=== PATIENT | male | born 1960 | race Caucasian/White ===

== ENCOUNTER 2016-07-24 15:40 | Emergency (ER) | payer OTHER, MEDICAID ==
[2016-07-24 15:47] VITALS: BP 122/69; PULSE 116; RESP 16; TEMP 97.9; O2SAT 96
[2016-07-24] MEDS ORDERED: NS 1,000 ML IV ONE (16:24)
--- NOTE | 2016-07-24 16:25 | UCPHY ---
H & P Patient Type: Established Chief Complaint Nursing Narrative: c/o generalized abd pain, n/v since 1am today Time Seen by Provider: 07/24/16 16:14 HPI/ROS: Chief Complaint: Back pain, abdominal pain HPI: 56-year-old developmentally delayed male type 2 diabetes presenting with mid back pain and right-sided abdominal pain which started about 3 o'clock this morning. Patient woke up with lower back pain. He has had several episodes of vomiting. He has been constipated had a bowel movement for about 3 days. No fevers or chills. He was seen by his physician who noted that he had 2+ blood in his urine, otherwise was negative. He was sent here for further evaluation. ROS: 10 point Review of Systems is negative except as noted in the HPI. PMH: Developmental delay, appendectomy, type 2 diabetes Social History: No smoking, no alcohol, no recreational drug use Family History: non-contributory Physical Exam: Gen: Awake, Alert, No Distress HEENT: Nose: no rhinorrhea Eyes: PERRLA, EOMI Mouth: Moist mucosa Neck: Supple, no JVD Chest: nontender, lungs clear to auscultation Heart: S1, S2 normal, no murmur Abd: Soft, mild tenderness no right lower quadrant, no guarding Back: no CVA tenderness, no midline tenderness Ext: no edema, non-tender Skin: no rash Neuro: CN II-XII intact, Sensation grossly intact, Strength 5/5 in bilateral upper and lower extremities - Medical/Surgical History Hx Asthma: No Hx Chronic Respiratory Disease: No Hx Diabetes: Yes Hx Cardiac Disease: No Hx Renal Disease: No Hx Cirrhosis: No Hx HIV/AIDS: No Hx Splenectomy or Spleen Trauma: No Other PMH: diabetes, htn - Family History Significant Family History: No pertinent family hx - Social History Smoking Status: Never smoked Constitutional: Initial Vital Signs Temperature (C) 36.6 C 07/24/16 15:44 Heart Rate 116 H 07/24/16 15:44 Respiratory Rate 16 07/24/16 15:44 Blood Pressure 122/69 H 07/24/16 15:44 O2 Sat (%) 96 07/24/16 15:44 O2 Delivery Mode Room Air Allergies/Adverse Reactions: No Known Allergies Allergy (Verified 07/26/13 14:50) Home Medications: Medication Instructions Recorded LISINOPRIL 40 mg 05/01/10 METFORMIN HCL 1,000 mg 05/01/10 Insulin NPH Human [humULIN N 100 26 units 07/26/13 UNITS/ML (*)] Medical Decision Making - Diagnostics Imaging Results: Imaging Impressions Abdomen/Pelvis CT 07/24/16 16:25 Impression: 1. Moderate right hydronephrosis and hydroureter with associated stranding. Differential diagnosis includes recently passed ureteral calculus versus pyelonephritis. 2. Bilateral nephrolithiasis. 3. Constipation. Otherwise, normal bowel pattern. Findings discussed with Emergency Department physician, Vlad Parker MD, on 07/24/2016 at 1718 hours. Attention: This CT examination is specifically designed to evaluate patients who are clinically suspected of having acute obstructive uropathy. This examination does not use radiographic contrast, and as such, provides only a limited evaluation of the abdomen, pelvis and retroperitoneum. If there is further clinical suspicion for pathological conditions other than obstructive uropathy, a complete CT evaluation of the abdomen and pelvis utilizing intravenous, oral, and rectal contrast should be considered. Imaging: Discussed imaging studies w/ scallop dredger Radiologist ED Course/Re-evaluation: CT scan consistent with a passed kidney stone. Urinalysis shows blood but there is no leuk esterase or nitrate to suggest infection. Patient has not had any pain here has not required any analgesia. Will discharge with follow up with primary care physician as needed, return for worsening. - Data Points Laboratory Results: Laboratory Results 07/24/16 16:18 07/24/16 16:18 07/24/16 07/24/16 07/24/16 18:00 16:18 16:18 WBC 13.31 10^3/uL H 10^3/uL (3.80-9.50) RBC 4.89 10^6/uL 10^6/uL (4.40-6.38) Hgb 14.8 g/dL g/dL (13.7-17.5) POC Hgb Hct 43.0 % % (40.0-51.0) POC Hct MCV 87.9 fL fL (81.5-99.8) MCH 30.3 pg pg (27.9-34.1) MCHC 34.4 g/dL g/dL (32.4-36.7) RDW 13.3 % % (11.5-15.2) Plt Count 328 10^3/uL 10^3/uL (150-400) MPV 10.0 fL fL (8.7-11.7) Neut % (Auto) 85.9 % H % (39.3-74.2) Lymph % (Auto) 7.0 % L % (15.0-45.0) Dillon % (Auto) 6.5 % % (4.5-13.0) Eos % (Auto) 0.0 % L % (0.6-7.6) Baso % (Auto) 0.1 % L % (0.3-1.7) Nucleat RBC Rel Count 0.0 % % (0.0-0.2) Absolute Neuts (auto) 11.44 10^3/uL H 10^3/uL (1.70-6.50) Absolute Lymphs (auto) 0.93 10^3/uL L 10^3/uL (1.00-3.00) Absolute Monos (auto) 0.87 10^3/uL H 10^3/uL (0.30-0.80) Absolute Eos (auto) 0.00 10^3/uL L 10^3/uL (0.03-0.40) Absolute Basos (auto) 0.01 10^3/uL L 10^3/uL (0.02-0.10) Absolute Nucleated RBC 0.00 10^3/uL 10^3/uL (0-0.01) Immature Gran % 0.5 % % (0.0-1.1) Immature Gran # 0.06 10^3/uL 10^3/uL (0.00-0.10) POC Sodium Sodium 140 mEq/L mEq/L (134-144) POC Potassium Potassium 4.8 mEq/L mEq/L (3.5-5.2) POC Chloride Chloride 102 mEq/L mEq/L (97-110) Carbon Dioxide 17 mEq/l L mEq/l (22-31) Anion Gap 21 mEq/L H mEq/L (8-16) POC BUN BUN 32 mg/dL H mg/dL (7-23) Creatinine 1.2 mg/dL mg/dL (0.7-1.3) POC Creatinine Estimated GFR > 60 Glucose 247 mg/dL H mg/dL (70-100) POC Glucose Calcium 9.7 mg/dL mg/dL (8.5-10.4) Total Bilirubin 0.6 mg/dL mg/dL (0.1-1.4) Conjugated Bilirubin 0.3 mg/dL mg/dL (0.0-0.5) Unconjugated Bilirubin 0.3 mg/dL mg/dL (0.0-1.1) AST 20 IU/L IU/L (17-59) ALT 24 IU/L IU/L (21-72) Alkaline Phosphatase 122 IU/L IU/L (38-126) Total Protein 7.5 g/dL g/dL (6.3-8.2) Albumin 4.2 g/dL g/dL (3.5-5.0) Lipase 209.0 IU/L IU/L (23-300) Urine Color YELLOW Urine Appearance CLEAR Urine pH 5.5 (5.0-7.5) Ur Specific [place] 1.020 (1.002-1.030) Urine Protein 1+ H (NEGATIVE) Urine Ketones 1+ H (NEGATIVE) Urine Blood 3+ H (NEGATIVE) Urine Nitrate NEGATIVE (NEGATIVE) Urine Bilirubin NEGATIVE (NEGATIVE) Urine Urobilinogen 0.2 EU EU (0.2-1.0) Ur Leukocyte Esterase NEGATIVE (NEGATIVE) Urine RBC Pending Urine WBC Pending Ur Epithelial Cells Pending Urine Glucose 2+ H (NEGATIVE) 07/24/16 16:11 WBC RBC Hgb POC Hgb 15.6 gm/dL gm/dL (14.5-17.3) Hct POC Hct 46 % % (42.8-50.6) MCV MCH MCHC RDW Plt Count MPV Neut % (Auto) Lymph % (Auto) Dillon % (Auto) Eos % (Auto) Baso % (Auto) Nucleat RBC Rel Count Absolute Neuts (auto) Absolute Lymphs (auto) Absolute Monos (auto) Absolute Eos (auto) Absolute Basos (auto) Absolute Nucleated RBC Immature Gran % Immature Gran # POC Sodium 141 mEq/L mEq/L (134-144) Sodium POC Potassium 4.6 mEq/L mEq/L (3.3-5.0) Potassium POC Chloride 106 mEq/L mEq/L (96-108) Chloride Carbon Dioxide Anion Gap POC BUN 34 mg/dL H mg/dL (7-23) BUN Creatinine POC Creatinine 1.3 mg/dL mg/dL (0.8-1.5) Estimated GFR Glucose POC Glucose 257 mg/dL H mg/dL (70-100) Calcium Total Bilirubin Conjugated Bilirubin Unconjugated Bilirubin AST ALT Alkaline Phosphatase Total Protein Albumin Lipase Urine Color Urine Appearance Urine pH Ur Specific [place] Urine Protein Urine Ketones Urine Blood Urine Nitrate Urine Bilirubin Urine Urobilinogen Ur Leukocyte Esterase Urine RBC Urine WBC Ur Epithelial Cells Urine Glucose Medications Given: Discontinued Medications Sodium Chloride (Ns) 1,000 mls @ 0 mls/hr IV ONCE ONE PRN Reason: Wide Open Stop: 07/24/16 16:25 Last Admin: 07/24/16 16:40 Dose: 1,000 mls Point of Care Test Results: 07/24/16 16:11 POC Sodium 141 POC Potassium 4.6 POC Chloride 106 POC BUN 34 H POC Creatinine 1.3 POC Glucose 257 H Departure - Departure Disposition: Home, Routine, Self-Care Clinical Impression: Kidney stone Condition: Good Instructions: Kidney Stones (ED) Additional Instructions: Follow up with primary care physician in 3-4 days if you're still having pain. Return Urgent Care emergency department for fevers, chills, uncontrolled pain, nausea, vomiting, or any other concerns. Referrals: Karin Shepard MD [Primary Care Provider] - As per Instructions - PQRS PQRS Measurement: NA
[2016-07-24 16:33] LABS: % IMMATURE GRANULYOCYTES 0.5 % (0.0-1.1); ABSOLUTE IMMATURE GRANULOCYTES 0.06 10^3/uL (0.00-0.10); ADD DIFF? NO; ADD MORPH? NO; ADD SCAN? NO; ATYPICAL LYMPHOCYTE FLAG 0 (0-99); FRAGMENT RBC FLAG 0 (0-99); HEMOGLOBIN 14.8 g/dL (13.7-17.5); LEFT SHIFT FLG 0 (0-99); LIPEMIA HEMOLYSIS FLAG 90 (0-99); MEAN CELL HEMOGLOBIN 30.3 pg (27.9-34.1); MEAN CELL HEMOGLOBIN CONCENTR. 34.4 g/dL (32.4-36.7); MEAN CELL VOLUME 87.9 fL (81.5-99.8); PLATELET CLUMPS FLAG 10 (0-99); PLATELET COUNT 328 10^3/uL (150-400); RED BLOOD CELL COUNT 4.89 10^6/uL (4.40-6.38); RED CELL DISTRIBUTION WIDTH 13.3 % (11.5-15.2)
[2016-07-24 16:48] LABS: ALANINE AMINOTRANSFERASE 24 IU/L (21-72); ALBUMIN 4.2 g/dL (3.5-5.0); ALKALINE PHOSPHATASE 122 IU/L (38-126); ANION GAP 21 mEq/L (8-16); ASPARTATE AMINOTRANSFERASE 20 IU/L (17-59); BILIRUBIN,TOTAL 0.6 mg/dL (0.1-1.4); BILIRUBIN-CONJUGATED 0.3 mg/dL (0.0-0.5); BILIRUBIN-UNCONJUGATED 0.3 mg/dL (0.0-1.1); CALCIUM 9.7 mg/dL (8.5-10.4); CARBON DIOXIDE 17 mEq/l (22-31); CHLORIDE 102 mEq/L (97-110); CREATININE 1.2 mg/dL (0.7-1.3); GLOMERULAR FILTRATION RATE > 60; GLUCOSE 247 mg/dL (70-100); POTASSIUM 4.8 mEq/L (3.5-5.2); SODIUM 140 mEq/L (134-144); TOTAL PROTEIN 7.5 g/dL (6.3-8.2)
[2016-07-24 18:08] LABS: COLOR YELLOW; LEUKOCYTE ESTERASE,URINE NEGATIVE (NEGATIVE); NITRITE,URINE NEGATIVE (NEGATIVE); PH,URINE 5.5 (5.0-7.5)
[2016-07-24 18:24] LABS: BACTERIA 1+ /hpf (NONE SEEN); MUCUS 2+ /lpf (NONE-1+)
== END 2016-07-24 18:40 | disposition home or self-care (01) ==
LOC: CED 15:40
DX: N20.0 Calculus of kidney (principal); K59.00 Constipation, unspecified; E11.9 Type 2 diabetes mellitus without complications; I10 Essential (primary) hypertension
CPT/HCPCS: 74176-PO; 80048-PO; 80076-PO; 81003-PO; 81015-PO; 82947-QW; 83690-PO; 85025-PO; 96360-PO; 99215-PO; G0463-PO

== ENCOUNTER 2017-05-16 10:30 | Emergency (ER) | payer OTHER, MEDICAID ==
--- NOTE | 2017-05-16 11:01 | EDPHY ---
H & P Stated Complaint: R hip pain after fall from van this am Time Seen by Provider: 05/16/17 10:43 HPI/ROS: CHIEF COMPLAINT: Right hip pain History by patient HISTORY OF PRESENT ILLNESS: 57-year-old man with history of prior stroke presents complaining of right hip pain after falling out of the van on his way to his day program approximately 90 min ago. Patient states that he landed on his right side. He did not hit his head. He was able to get up on his own. He has pain when he walks however. He also complains of pain in the middle and lower part of his back. He denies any neck pain. He denies any chest pain but complains of pain in his back when he takes a deep breath. He denies any focal numbness or weakness. He also complains of some left leg pain right after the fall but states this has resolved currently. He has not taken anything for pain and declines anything for pain currently. REVIEW OF SYSTEMS: As in HPI, and all other systems reviewed and are negative Source: Patient, Family - Personal History Current Tetanus/Diphtheria Vaccine: Yes - Medical/Surgical History Hx Asthma: No Hx Chronic Respiratory Disease: No Hx Diabetes: Yes Hx Cardiac Disease: No Hx Renal Disease: No Hx Cirrhosis: No Hx Alcoholism: No Hx HIV/AIDS: No Hx Splenectomy or Spleen Trauma: No Other PMH: appy, eye, diabetes, htn - Social History Smoking Status: Never smoked - Physical Exam Exam: General Appearance: Alert and no distress. Older appearing than stated age Eyes: Pupils equal and round no injection. Extraocular movements intact Head: Normocephalic atraumatic Musculoskeletal: Neck is supple and nontender. Full range of motion Chest: No clavicular chest wall tenderness Extremities: Pelvis is stable nontender, full range of motion of right hip, positive tenderness over right inferior trochanter, no skin lesions, full range of motion of right knee, positive pain with AB duction inflection a hip, DP pulses 2+ equal bilaterally, left leg with node tenderness or deformity and full range of motion Back: Positive tenderness mid T-spine and upper L-spine, and step-off or crepitus. Skin: No rashes or lesions except as described above. Neurologic: Awake alert oriented x3, old facial droop, motor is 5/5 equal bilaterally, sensation intact throughout Constitutional: Initial Vital Signs Heart Rate 98 05/16/17 10:37 Respiratory Rate 20 05/16/17 10:37 Blood Pressure 145/84 H 05/16/17 10:37 O2 Sat (%) 94 05/16/17 10:37 O2 Delivery Mode Room Air Allergies/Adverse Reactions: No Known Allergies Allergy (Verified 05/16/17 10:40) Home Medications: Medication Instructions Recorded Amlodipine Besylate 05/16/17 Lantus Solostar 05/16/17 Lisinopril 05/16/17 Simvastatin 05/16/17 metFORMIN HCL 05/16/17 Medical Decision Making - Diagnostics Imaging Results: Imaging Impressions Hip X-Ray 05/16/17 10:45 Impression: 1. Minimal L2 and L3 compressions of unknown age. Correlation with the site of symptoms is recommended. 2. Scoliosis. Query muscle spasm. 3. Severe constipation. 2. Thoracic Spine, 4 views History: Pain, fall out of vehicle Findings: There is a mild thoracic dextroscoliosis. Alignment on the lateral view is anatomic. There is no paraspinal stripe widening. Thoracic disk spaces maintain normal height. No fracture is identified. There is atherosclerotic calcification of the aortic arch and both carotid bifurcations. Impression: No fracture identified. 3. Right Hip, 2 views History: Pain, fall from vehicle Findings: No hip fracture or dislocation is identified. The pelvic ring appears intact. The SI joints and pubic symphysis appear normally aligned. There is scattered atherosclerotic vascular calcification. Impression: Nothing acute identified. Lumbar Spine X-Ray 05/16/17 10:45 Impression: 1. Minimal L2 and L3 compressions of unknown age. Correlation with the site of symptoms is recommended. 2. Scoliosis. Query muscle spasm. 3. Severe constipation. 2. Thoracic Spine, 4 views History: Pain, fall out of vehicle Findings: There is a mild thoracic dextroscoliosis. Alignment on the lateral view is anatomic. There is no paraspinal stripe widening. Thoracic disk spaces maintain normal height. No fracture is identified. There is atherosclerotic calcification of the aortic arch and both carotid bifurcations. Impression: No fracture identified. 3. Right Hip, 2 views History: Pain, fall from vehicle Findings: No hip fracture or dislocation is identified. The pelvic ring appears intact. The SI joints and pubic symphysis appear normally aligned. There is scattered atherosclerotic vascular calcification. Impression: Nothing acute identified. Thoracic Spine X-Ray 05/16/17 10:54 Impression: 1. Minimal L2 and L3 compressions of unknown age. Correlation with the site of symptoms is recommended. 2. Scoliosis. Query muscle spasm. 3. Severe constipation. 2. Thoracic Spine, 4 views History: Pain, fall out of vehicle Findings: There is a mild thoracic dextroscoliosis. Alignment on the lateral view is anatomic. There is no paraspinal stripe widening. Thoracic disk spaces maintain normal height. No fracture is identified. There is atherosclerotic calcification of the aortic arch and both carotid bifurcations. Impression: No fracture identified. 3. Right Hip, 2 views History: Pain, fall from vehicle Findings: No hip fracture or dislocation is identified. The pelvic ring appears intact. The SI joints and pubic symphysis appear normally aligned. There is scattered atherosclerotic vascular calcification. Impression: Nothing acute identified. Pelvis X-Ray 05/16/17 11:31 Impression: Nothing acute identified. ED Course/Re-evaluation: 57-year-old man presents with right hip pain and low back pain after fall out of a parked vehicle. Patient is currently ambulatory. X-rays showed no evidence of acute fracture per the radiologist. There was lumbar compression of indeterminate age on the x-ray, however given the mild nature of the patient' s pain and tenderness these are unlikely to represent acute fracture. I am recommending symptomatic treatment with ice, acetaminophen or Tylenol as needed and follow up with primary care physician. I discussed this with the patient and his sister. Departure - Departure Disposition: Home, Routine, Self-Care Clinical Impression: Contusion of hip, right Qualifiers: Encounter type: initial encounter Qualified Code(s): S70.01XA - Contusion of right hip, initial encounter Condition: Fair Instructions: Hip Contusion (ED) Additional Instructions: You were seen by Dr. Sonam Chowdhury today. Your x-ray showed no evidence of acute fracture. He may take Tylenol and/or ibuprofen as needed for pain. Try also icing the sore areas. Return for any worsening or new concerns. Follow up with the primary care physician as needed. Referrals: Karin Shepard MD [Primary Care Provider] - As per Instructions
[2017-05-16 11:49] VITALS: BP 144/90; PULSE 94; RESP 18; TEMP 97.9; O2SAT 91
== END 2017-05-16 12:05 | disposition home or self-care (01) ==
LOC: CED 10:30
DX: S70.01XA Contusion of right hip, initial encounter (principal); E11.9 Type 2 diabetes mellitus without complications; I10 Essential (primary) hypertension; Z79.4 Long term (current) use of insulin; V58.3XXA Unspecified occupant of pick-up truck or van injured in noncollision transport accident in nontraffic accident, initial encounter
CPT/HCPCS: 72072-PO; 72100-PO; 72190-PO; 73502-PO

== ENCOUNTER 2017-05-27 12:33 | Emergency (ER) | payer OTHER, MEDICAID ==
[2017-05-27 12:44] VITALS: TEMP 98
[2017-05-27] MEDS ORDERED: ONDANSETRON 4 MG/2 ML VIAL IVP ONE (13:00)
--- NOTE | 2017-05-27 13:02 | EDPHY ---
H & P Stated Complaint: c/o being sick since last week Time Seen by Provider: 05/27/17 12:36 HPI/ROS: 57-year-old male presents complaining of nausea and dry heaves that began yesterday although he states he had a similar episode about a week ago lasting several days. He denies diarrhea he denies constipation. He complains of crampy abdominal pain as well. Review of systems General no fever no chills no weakness HEENT no eye pain no eye discharge. No eye redness, no sore throat Respiratory no cough, no shortness of breath Cardiac no chest pain, no peripheral edema GI no abdominal pain, no diarrhea, no constipation, positive dry heaves, nausea , vomiting no flank pain, no hematuria, no dysuria Musculoskeletal no myalgias, no joint pain Heme no easy bruising, no easy bleeding Endo no polyuria, no polydipsia Skin no rashes, no pruritus Neuro no syncope, no dizziness, no headaches Psych is no suicidal ideation, no homicidal ideation Source: Patient Exam Limitations: No limitations - Personal History Current Tetanus Diphtheria and Acellular Pertussis (TDAP): Unsure - Medical/Surgical History Hx Asthma: No Hx Chronic Respiratory Disease: No Hx Diabetes: Yes Hx Cardiac Disease: No Hx Renal Disease: No Hx Cirrhosis: No Hx Alcoholism: No Hx HIV/AIDS: No Hx Splenectomy or Spleen Trauma: No Other PMH: appy, eye, diabetes, htn - Family History Significant Family History: No pertinent family hx - Social History Smoking Status: Never smoked Alcohol Use: None Drug Use: None - Physical Exam Exam: 57-year-old male awake alert in moderate distress secondary to dry heaves, nontoxic in appearance, afebrile HEENT atraumatic normocephalic, extraocular muscles intact, anicteric Oropharynx mucosa dry Neck supple no meningismus Lungs clear to auscultation bilaterally Heart regular rate and rhythm without murmur rub or gallop Abdomen nondistended bowel sounds present, mild diffuse tenderness, no guarding no rebound no pulsatile mass Will healed scar in right lower quadrant Back no CVA tenderness, no step-offs, no spinal tenderness Extremities no cyanosis clubbing or edema Neuro alert and oriented, no focal deficits Constitutional: Initial Vital Signs Temperature (C) 36.6 C 05/27/17 12:41 Heart Rate 92 02/20/18 12:41 Respiratory Rate 18 05/27/17 12:41 Blood Pressure 127/73 H 05/27/17 12:41 O2 Sat (%) 93 05/27/17 12:41 O2 Delivery Mode Room Air O2 (L/minute) 2 Allergies/Adverse Reactions: No Known Allergies Allergy (Verified 05/16/17 10:40) Home Medications: Medication Instructions Recorded Amlodipine Besylate 05/16/17 Lantus Solostar 05/16/17 Lisinopril 05/16/17 Simvastatin 05/16/17 metFORMIN HCL 05/16/17 Medical Decision Making - Diagnostics Imaging Results: Imaging Impressions Abdomen X-Ray 05/27/17 14:01 Impression: 1. Constipation. 2. No acute findings. ED Course/Re-evaluation: Patient seen and evaluated for nausea vomiting dry heaves, crampy abdominal pain. CBC within normal limits Lipase normal Lactate normal Glucose mildly elevated at 1:50 a.m. Bicarb 18, anion gap 22 EKG normal sinus rhythm Troponin normal Abdominal series No dilated bowel no air-fluid levels, large amount of stool burden Patient given 2 L normal saline Zofran 4 mg IV push Feeling markedly improved Impression Constipation With nausea No evidence of small-bowel obstruction Plan Home Stool softener, ondansetron, Mag citrate as needed Follow-up PCP Differential Diagnosis: Differential diagnosis considered but not limited to Small bowel obstruction, pancreatitis, cholecystitis, gastroenteritis, enteritis , constipation - Data Points Laboratory Results: Laboratory Results 05/27/17 13:25 05/27/17 13:25 05/27/17 05/27/17 05/27/17 13:25 13:25 13:25 WBC 9.49 10^3/uL 10^3/uL (3.80-9.50) RBC 5.28 10^6/uL 10^6/uL (4.40-6.38) Hgb 15.4 g/dL g/dL (13.7-17.5) Hct 44.7 % % (40.0-51.0) MCV 84.7 fL fL (81.5-99.8) MCH 29.2 pg pg (27.9-34.1) MCHC 34.5 g/dL g/dL (32.4-36.7) RDW 14.3 % % (11.5-15.2) Plt Count 357 10^3/uL 10^3/uL (150-400) MPV 9.3 fL fL (8.7-11.7) Neut % (Auto) 79.5 % H % (39.3-74.2) Lymph % (Auto) 9.7 % L % (15.0-45.0) [place] % (Auto) 10.1 % % (4.5-13.0) Eos % (Auto) 0.2 % L % (0.6-7.6) Baso % (Auto) 0.2 % L % (0.3-1.7) Nucleat RBC Rel Count 0.0 % % (0.0-0.2) Absolute Neuts (auto) 7.54 10^3/uL H 10^3/uL (1.70-6.50) Absolute Lymphs (auto) 0.92 10^3/uL L 10^3/uL (1.00-3.00) Absolute Monos (auto) 0.96 10^3/uL H 10^3/uL (0.30-0.80) Absolute Eos (auto) 0.02 10^3/uL L 10^3/uL (0.03-0.40) Absolute Basos (auto) 0.02 10^3/uL 10^3/uL (0.02-0.10) Absolute Nucleated RBC 0.00 10^3/uL 10^3/uL (0-0.01) Immature Gran % 0.3 % % (0.0-1.1) Immature Gran # 0.03 10^3/uL 10^3/uL (0.00-0.10) VBG Lactic Acid 2.0 mmol/L mmol/L (0.7-2.1) Sodium 139 mEq/L mEq/L (135-145) Potassium 4.8 mEq/L mEq/L (3.5-5.2) Chloride 99 mEq/L mEq/L (97-110) Carbon Dioxide 18 mEq/l L mEq/l (22-31) Anion Gap 22 mEq/L H mEq/L (8-16) BUN 30 mg/dL H mg/dL (7-23) Creatinine 1.2 mg/dL mg/dL (0.7-1.3) Estimated GFR > 60 Glucose 153 mg/dL H mg/dL (70-100) Calcium 9.4 mg/dL mg/dL (8.5-10.4) Total Bilirubin 0.7 mg/dL mg/dL (0.1-1.4) AST 27 IU/L IU/L (17-59) ALT 40 IU/L IU/L (21-72) Alkaline Phosphatase 115 IU/L IU/L (38-126) Troponin I 0.012 ng/mL ng/mL (0.000-0.034) Total Protein 7.3 g/dL g/dL (6.3-8.2) Albumin 3.9 g/dL g/dL (3.5-5.0) Lipase 178 IU/L IU/L (23-300) Medications Given: Discontinued Medications Sodium Chloride (Ns) 1,000 mls @ 0 mls/hr IV ONCE ONE PRN Reason: Wide Open Stop: 05/27/17 13:01 Last Admin: 05/27/17 14:21 Dose: 1,000 mls Sodium Chloride (Ns) 1,000 mls @ 0 mls/hr IV ONCE ONE PRN Reason: Wide Open Stop: 05/27/17 14:00 Last Admin: 05/27/17 14:28 Dose: 1,000 mls Ketorolac Tromethamine (Toradol) 30 mg IVP EDNOW ONE Stop: 05/27/17 14:55 Last Admin: 05/27/17 15:01 Dose: 30 mg Magnesium Citrate (Magnesium Citrate) 300 ml PO ONCE ONE Stop: 05/27/17 14:59 Last Admin: 05/27/17 15:03 Dose: 1 b Ondansetron HCl (Zofran) 4 mg IVP EDNOW ONE Stop: 05/27/17 13:01 Last Admin: 05/27/17 13:12 Dose: 4 mg Ondansetron HCl (Zofran Odt 4 Mg Prepack#2) 1 btl TAKEHOME EDNOW ONE Stop: 05/27/17 14:59 Last Admin: 05/27/17 15:02 Dose: 1 btl Departure - Departure Disposition: Home, Routine, Self-Care Clinical Impression: Constipation, Nausea Condition: Good Instructions: Constipation (ED), Acute Nausea and Vomiting (ED) Additional Instructions: Follow-up with your primary care physician this week. Referrals: Karin Shepard MD [Primary Care Provider] - As per Instructions
[2017-05-27] MEDS: NS 1,000 ML IV ONE ×2 (13:12→14:21)
[2017-05-27 13:29] LABS: PLATELET COUNT 357 10^3/uL (150-400)
--- NOTE | 2017-05-27 13:29 | CPEKG ---
Heart Rate: 94 RR Interval: 638 P-R Interval: 176 QRSD Interval: 90 QT Interval: 352 QTC Interval: 441 P H[place]: 65 QRS [place]ley: -36 T Wave [place]: 30 EKG Severity - BORDERLINE ECG - EKG Impression: SINUS RHYTHM EKG Impression: LEFT AXIS DEVIATION EKG Impression: BORDERLINE R WAVE PROGRESSION, ANTERIOR LEADS Electronically Signed By: Ant Aguayo 29-May-2017 07:17:24
[2017-05-27] MEDS ORDERED: NS 1,000 ML IV ONE (13:59)
[2017-05-27 14:45] VITALS: BP 150/65
[2017-05-27] MEDS ORDERED: KETOROLAC 30 MG/1 ML SDV IVP ONE (14:54)
[2017-05-27] MEDS ORDERED: ONDANSETRON 4MG PREPACK#2 BTL TAKEHOME ONE (14:58)
[2017-05-27] MEDS ORDERED: MAGNESIUM CITRATE 300 ML BOTTLE PO ONE (14:58)
[2017-05-27 15:11] VITALS: PULSE 74; RESP 18; O2SAT 90
== END 2017-05-27 15:09 | disposition home or self-care (01) ==
LOC: CED 12:33
DX: K59.00 Constipation, unspecified (principal); R11.2 Nausea with vomiting, unspecified; E11.9 Type 2 diabetes mellitus without complications; I10 Essential (primary) hypertension; Z79.4 Long term (current) use of insulin; Z79.84 Long term (current) use of oral hypoglycemic drugs
CPT/HCPCS: 74022; 93005; 96361; 96374; 96375; 99285; J1885; J2405; 80053-PO; 83605-PO; 83690-PO; 84484-PO; 85025-PO

== ENCOUNTER 2017-06-12 14:08 | Emergency (ER) | payer OTHER, MEDICAID ==
[2017-06-12 14:23] VITALS: BP 139/77; PULSE 80; RESP 16; TEMP 97.9; O2SAT 95
--- NOTE | 2017-06-12 14:53 | EDPHY ---
H & P Time Seen by Provider: 06/12/17 14:26 HPI/ROS: CHIEF COMPLAINT: Constipation HISTORY OF PRESENT ILLNESS: Patient complains of constipation. States he was at [facility] last Friday and had both an enema and a bottle of Mag citrate. He did have good results with that treatment but states he has not passed stool since. He is passing gas. He says there is a little abdominal discomfort but no significant pain. Denies nausea or vomiting. Has been using Metamucil and other oral stool softeners but has not tried Mag citrate again. He denies fevers or chills. No urinary problems. Has been having problems with constipation over the last month or so. REVIEW OF SYSTEMS: Constitutional: No fever, no chills. Eyes: No discharge. ENT: No sore throat. Cardiovascular: No chest pain, no palpitations. Respiratory: No cough, no shortness of breath. Gastrointestinal: No abdominal pain, no vomiting. Genitourinary: No dysuria. Musculoskeletal: No back pain. Skin: No rashes. Neurological: No headache. General Appearance: Alert, no distress. Eyes: Pupils equal and round no pallor or injection. ENT, Mouth: Mucous membranes moist. Respiratory: There are no retractions, lungs are clear to auscultation. Cardiovascular: Regular rate and rhythm. Gastrointestinal: Abdomen is soft and nontender, no masses, bowel sounds normal. Neurological: Awake and alert, no focal neurologic deficits. Skin: Warm and dry, no rashes. Musculoskeletal: Neck is supple nontender. Extremities are symmetrical, full range of motion, no edema. Psychiatric: Patient is oriented X 3, there is no agitation. Medical/surgical history: Insulin-dependent diabetes, high blood pressure. Surgical history of appendectomy. Social history: Lives with sister. Smoking Status: Never smoked Constitutional: Initial Vital Signs Temperature (C) 36.6 C 06/12/17 14:18 Heart Rate 80 06/12/17 14:18 Respiratory Rate 16 06/12/17 14:18 Blood Pressure 139/77 H 06/12/17 14:18 O2 Sat (%) 95 06/12/17 14:18 O2 Delivery Mode Room Air Allergies/Adverse Reactions: No Known Allergies Allergy (Verified 06/12/17 14:17) Home Medications: Medication Instructions Recorded Amlodipine Besylate 05/16/17 Lantus Solostar 05/16/17 Lisinopril 05/16/17 Simvastatin 05/16/17 metFORMIN HCL 05/16/17 Medical Decision Making Differential Diagnosis: Differential diagnosis includes but is not limited to constipation, small-bowel obstruction, diverticulitis, other acute abdominal condition. No evidence of distension, obstruction, peritonitis. No evidence of diabetic complication. The patient with normal bowel sounds and soft nontender abdomen. Will recommend [id number] treatments at home as previously successful. Return precautions discussed in detail. Also recommended close follow-up with primary care physician next week. Stable for discharge. Departure - Departure Disposition: Home, Routine, Self-Care Clinical Impression: Constipation Qualifiers: Constipation type: unspecified constipation type Qualified Code(s): K59.00 - Constipation, unspecified Condition: Good Instructions: Constipation (ED) Additional Instructions: Use magnesium citrate over the counter as discussed. He can also try fleets enema, follow instructions on packaging. Dietary changes may help including increased fluid intake especially water. If you do not get relief with these [id number] remedies or if you developed increased abdominal pain or unable to pass stool please follow-up with your primary care physician or return to the urgency department. You should see her primary care physician next week without fail. Referrals: Karin Shepard MD [Primary Care Provider] - As per Instructions
== END 2017-06-12 15:10 | disposition home or self-care (01) ==
LOC: CED 14:08
DX: K59.00 Constipation, unspecified (principal); E11.9 Type 2 diabetes mellitus without complications; I10 Essential (primary) hypertension; Z79.4 Long term (current) use of insulin